=== PATIENT | female | born 1955 | race Caucasian/White ===

== ENCOUNTER 2016-11-10 08:00 | Inpatient (IN) | payer OTHER ==
--- NOTE | 2016-11-09 20:53 | RADRPT ---
Vent Rate: 72 bpm RR Interval: 0 msec MA Interval: 146 msec QRS Duration: 86 msec QT Interval: 372 msec QTC Interval: 407 msec P-R-T [place]: 43 - 69 - 62 degrees Normal sinus rhythm Normal ECG Electronically Signed By: Andriy Sargent [id number]
[2016-11-10] VITALS (15 sets, daily range): BP systolic 105–153; BP diastolic 51–72; PULSE 48–75; RESP 12–23
[~2016-11-10 08:00] MED LIST: ASPI-664 PO; ATOR10TA65 PO; CIPR500T4 PO; GLIP-95 PO; HYD25 PO; LISI30TA47 PO; MTF1000T PO
[2016-11-10] MEDS ORDERED: ROCURONIUM 50 MG INJ ONE ×2 (14:01→18:37)
[2016-11-10] MEDS ORDERED: PROPOFOL 100 ML ONE (14:01)
[2016-11-10] MEDS ORDERED: MIDAZOLAM 1 MG/ML 2 ML INJ ONE (14:02)
[2016-11-10] MEDS ORDERED: SITA1TAB5 PO (14:19)
[2016-11-10] MEDS ORDERED: LANT3I SC (14:20)
--- NOTE | 2016-11-10 14:20 | HP ---
Date/Time of Note Date/Time of Note DATE: 11/10/16 TIME: 14:19 Assessment/Plan VTE Prophylaxis VTE Prophylaxis Intervention: SCD's Lines/Catheters [facility] Saline Lock Assessment/Plan Chief Complaint/Hosp Course Endometrial cancer Problems: Assessment/Plan TLH/BSO/LND HPI/ROS Admit Date/Time Admit Date/Time Nov 10, 2016 at 12:36 Hx of Present Illness Sonido Muniz M.D. [facility] History and Physical Examination Meghan Walsh Date: Nov 09, 2016 :1955 Age: 61 Physicians: It Intern Time Study Engineer Oncologist Referring MD: Andriy Emmanuel History of the Present Illness: A 61 year old female with a Grade 1 endometrial cancer on EMB. Medical history/ROS: Diabetes, Hypertension,Hyperlipidemia. G 3 P 3 Ab 0 Csec x 1, x 2 LMP: Age 49 Surgical history: CSx2. Flu yes, 08/2016, Pneumococcal no, declined Colonoscopy: yes, 10/10/2016 Last Pap Smear: 06/07/2016 Last Mammogram 10/30/2015 Medications: 10/12/16 atorvastatin 40 mg tablet 1 tablet by mouth DAILY 10/11/16 Diabetic Siltussin-DM 10 mg-100 mg/5 mL oral liquid 1 mL by mouth as directed prn q 4 hrs 10/11/16 Fingerstix Lancets 1 item as directed BID 10/11/16 glipizide 10 mg tablet 1 tablet by mouth DAILY 10/11/16 hydrochlorothiazide 50 mg tablet 1 tablet by mouth DAILY 10/11/16 Janumet 50 mg-1,000 mg tablet 1 tablet by mouth BID 10/11/16 Lantus Solostar 100 unit/mL (3 mL) subcutaneous insulin pen 1 unit inject below the skin BID 10/11/16 Lipitor 40 mg tablet 1 tablet by mouth DAILY 10/11/16 lisinopril 20 mg tablet 1 tablet by mouth DAILY 10/11/16 Lotrisone 1 %-0.05 % topical cream 1 application apply on the skin BID 10/11/16 metformin 1,000 mg tablet 1 tablet by mouth BID 10/11/16 Premarin 0.625 mg/gram vaginal cream 1 gm in the vagina as directed Allergies: 10/11/16 No Known Drug Intolerances Family Hx: non-contributary Social HX: non-contributary ROS: as above Physical Examination Vitals (10/12/2016): Weight 153, Height 62, BP 140/80, BMI 28.0. General: Alert. HEENT: Pupils are equal, round, reactive to light and accommodation. Neck: Supple with no masses of lymphadenopathy. Breast: Deferred due to recent examination and responsibility of primary care physician. Chest: Clear to auscultation Heart: Normal rhythm with no murmur. Abdomen: Non tender, no ascites nor organomeglay. Pelvic exam: Uterus enlarged and globular, no masses or cul-de-sac nodularity noted Rectal: confirmatory with pelvic exam. Neurological: Grossly intact Assessment: Endometrial cancer Plan: TLH/BSO/LND possible Ud x2. All risks and benefits of this procedure have been discussed in detail with the patient, as well as alternative treatment strategies and their implications. The patient is aware that there is some possibility of a blood transfusion and its associated risks and benefits. She wishes to proceed and gives her informed consent. Sonido Muniz M.D. PMH/Family/Social Social History Smoking Status: Never smoker Exam/Review of Systems Vital Signs Vitals Vital Signs Date Time Temp Pulse Resp B/P Pulse Ox O2 Delivery O2 Flow Rate FiO2 11/10/16 14:04 97.6 75 18 153/72 98 Room Air SONIDO MUNIZ MD Nov 10, 2016 14:20
--- NOTE | 2016-11-10 14:21 | HPN ---
Date/Time of Note Date/Time of Note DATE: 11/10/16 TIME: 14:20 Interval H&P Admission Note Pt. seen H&P reviewed: No system changes JALEN MUNIZ MD Nov 10, 2016 14:21
[2016-11-10] MEDS ORDERED: VASOPRESSIN 20 UNITS INJ ONE (14:25)
[2016-11-10] MEDS ORDERED: METHYLENE BLUE 10 MG/ML VIAL ONE ×2 (14:26→16:55)
[2016-11-10] MEDS ORDERED: morphine SULFATE/PF (10 MG/10 ML) INJ ONE (14:29)
[2016-11-10] MEDS ORDERED: FENTAnyl 50 MCG/ML VIAL ONE (15:08)
[2016-11-10] MEDS ORDERED: CEFAZOLIN 1 GM INJ ONE ×2 (15:33→18:16)
[2016-11-10] MEDS ORDERED: metroNIDAZOLE 500 MG/NS (PMX) 100 ML IVPB ONE (15:33)
[2016-11-10] MEDS ORDERED: ONDANSETRON 4 MG INJ ONE (15:35)
[2016-11-10] MEDS ORDERED: DEXAMETHASONE 4 MG/ML 1 ML INJ ONE (15:35)
[2016-11-10] MEDS ORDERED: FAMOTIDINE 20 MG INJ ONE (15:35)
[2016-11-10] MEDS ORDERED: METOCLOPRAMIDE 10 MG INJ ONE (15:35)
[2016-11-10] MEDS ORDERED: ROPIVACAINE 0.2% 20 ML VIAL ONE (15:43)
[2016-11-10] MEDS ORDERED: PHENYLephrine (100 MCG/ML) 5ML SYG ONE (15:43)
[2016-11-10] MEDS ORDERED: HEMOSTATIC MATRIX SYG ZFS ONE (17:46)
[2016-11-10] MEDS ORDERED: THROMBIN 5000 UNIT VIAL ONE (17:46)
[2016-11-10] MEDS ORDERED: NEOSTIGMINE 3 MG/3 ML SYRINGE ONE (18:37)
[2016-11-10] MEDS ORDERED: GLYCOPYRROLATE 0.4 MG INJ ONE (18:37)
[2016-11-10] MEDS ORDERED: D5-LR + KCL 20 MEQ 1,000 ML IV SCH (19:30)
[2016-11-10] MEDS ORDERED: ONDANSETRON 4 MG INJ IV PRN (19:30)
[2016-11-10] MEDS ORDERED: HYDROCODONE/APAP (5/325) TAB PO PRN (19:30)
[2016-11-10] MEDS ORDERED: morphine 2 MG INJ IV PRN (19:30)
[2016-11-10] MEDS: KETOROLAC 15 MG INJ IV SCH (22:32)
[2016-11-10] MEDS: CEFAZOLIN 1 GM/50 ML (PMX) 50 ML IVPB SCH (22:33)
[2016-11-10] MEDS ORDERED: GLUCOSE GEL 15 GRAM TUBE BUCCAL PRN (23:30)
[2016-11-10] MEDS ORDERED: GLUCOSE GEL 15 GRAM TUBE PO PRN ×2 (23:30)
[2016-11-10] MEDS ORDERED: DEXTROSE 50% 50 ML SYRINGE IV PRN ×2 (23:30)
[2016-11-10] MEDS ORDERED: GLUCAGON 1 MG INJ IM PRN (23:30)
[2016-11-11] VITALS (7 sets, daily range): BP systolic 90–131; BP diastolic 51–63; PULSE 56–65; RESP 16–20
[2016-11-11] MEDS ORDERED: INSULIN ASPART [NOVOLOG] 3 ML PEN SC ONE
[2016-11-11] MEDS ORDERED: INSULIN ASPART [NOVOLOG] 3 ML PEN SC SCH (01:00)
[2016-11-11] MEDS: KETOROLAC 15 MG INJ IV SCH ×4 (01:30→20:17)
[2016-11-11] MEDS: POTASSIUM CHLORIDE 20 MEQ in LACTATED RINGER'S 1,000 ML IV SCH ×2 (01:40→13:31)
[2016-11-11] MEDS: INSULIN GLARGINE [LANtus] 3 ML PEN SC SCH ×3 (01:44→20:21)
[2016-11-11] MEDS ORDERED: ACCUCHECK XX SCH (02:00)
[2016-11-11] MEDS: CEFAZOLIN 1 GM/50 ML (PMX) 50 ML IVPB SCH ×2 (05:35→13:46)
--- NOTE | 2016-11-11 06:22 | CONS ---
Date/Time of Note Date/Time of Note DATE: 11/11/16 TIME: 06:11 Assessment/Plan Assessment/Plan Additional Assessment/Plan 1. Grade 1 endometrial cancer s/p KULDEEP-BSO and lymph node dissection on 11/10 - cont pain mgmt - monitor for bowel obstruction and urinary retention. cont gonzalez for now - SCDs for DVT ppx 2. HTN: BP within goal - Adjust medsas needed 3. DM - Insulin while in house - will check A1c DVT ppx: SCDs Consultation Date/Type/Reason Admit Date/Time Nov 10, 2016 at 12:36 Reason for Consultation Medical Management Referring Provider: JALEN MUNIZ MD Hx of Present Illness This is a 61 yo female with hx of HTN, DM and A 61 year old female Grade 1 endometrial cancer who underwent KULDEEP-BSO and lymph node dissection on 11/10/16. A consult was placed for medical mgmt. Currently, she is feeling well except blurry vision that started after surgery, which pt and daughter attributed to anesthesia. Pain is well controlled. She denied abd bloating, difficulty passing gas, chest pain, SOB, fever/chills or N/V. , Past Medical History Medical History: diabetes, hypertension Social History Alcohol Use: none Smoking Status: Never smoker Drug Use: none Exam/Review of Systems Vital Signs Vitals Vital Signs Date Time Temp Pulse Resp B/P Pulse Ox O2 Delivery O2 Flow Rate FiO2 11/11/16 04:10 98.3 59 18 95/52 97 Nasal Cannula 11/10/16 21:00 2.0 Intake and Output 11/10/16 11/10/16 11/11/16 15:00 23:00 07:00 Intake Total 3500 ml 400 ml Output Total 400 ml 450 ml Balance 3100 ml -50 ml Exam Constitutional: alert, oriented, well developed Head: atraumatic, normocephalic Eyes: EOMI, PERRL Respiratory: clear to auscultation, normal air movement Cardiovascular: nl pulses, other (slightly emma with regular rhythm) Gastrointestinal: soft, surgical scars, tender Extremities: normal pulses Results Results 24 hrs Laboratory Tests Test 11/10/16 13:46 11/10/16 20:04 11/10/16 23:46 11/11/16 02:21 Bedside Glucose 160 219 303 H 297 H Medications Medications Current Medications Cefazolin Sodium (Ancef 1 Gm/50 ml (Pmx)) 50 ml @ 100 mls/hr Q8 IVPB Last administered on 11/11/16 05:35; Admin Dose 100 MLS/HR; Start 11/10/16 at 22:00 ; Stop 11/11/16 at 14:29 Ketorolac Tromethamine (Toradol) 15 mg Q6H IV Last administered on 11/10/16 22 :32; Admin Dose 15 MG; Start 11/10/16 at 19:30; Stop 11/12/16 at 13:31 Acetaminophen/ Hydrocodone Bitart ([place] (5/325)) 1 tab Q6H PRN PO PAIN; Start 11/10/16 at 19:30 Morphine Sulfate (morphine) 2 mg Q4H PRN IV PAIN LEVEL 7-10; Start 11/10/16 at 19:30 Ondansetron HCl (Zofran Inj) 4 mg Q6H PRN IV NAUSEA AND/OR VOMITING; Start at 19:30 Miscellaneous Information 1 ea NOTE XX ; Start 11/10/16 at 23:30 Glucose (Glutose) 15 gm Q15M PRN PO DECREASED GLUCOSE; Start 11/10/16 at 23:30 Glucose (Glutose) 22.5 gm Q15M PRN PO DECREASED GLUCOSE; Start 11/10/16 at 23: 30 Dextrose (D50w Syringe) 25 ml Q15M PRN IV DECREASED GLUCOSE; Start 11/10/16 at 23:30 Dextrose (D50w Syringe) 50 ml Q15M PRN IV DECREASED GLUCOSE; Start 11/10/16 at 23:30 Glucagon (Glucagen) 1 mg Q15M PRN IM DECREASED GLUCOSE; Start 11/10/16 at 23:30 Glucose (Glutose) 15 gm Q15M PRN BUCCAL DECREASED GLUCOSE; Start 11/10/16 at 23 :30 Diagnostic Test (Pha) (Accucheck) 1 ea 02 XX Last administered on 11/11/16 02: 00; Admin Dose 1 EA; Start 11/11/16 at 02:00 Insulin Glargine (Lantus) 15 unit QHS SC Last administered on 11/11/16 01:44; Admin Dose 15 UNIT; Start 11/11/16 at 00:00 Insulin Glargine 10 unit 10 unit AM SC ; Start 11/11/16 at 09:00 Potassium Chloride/Lactated Ringer's (KCl/Lr) 1,010 ml @ 75 mls/hr [id number] IV Last administered on 11/11/16t 01:40; Admin Dose 75 MLS/HR; Start 11/11/16 at 00 :00 TULIO FRANCIS MD Nov 11, 2016 06:21
[2016-11-11 06:58] LABS: BASOPHIL # 0.1 10^3/ul (0.0-0.1); BASOPHILS % 0.7 % (0.0-2.0); HEMATOCRIT 33.1 % (37.0-47.0); HEMOGLOBIN 11.2 g/dl (12.0-16.0); LYMPHOCYTES # 1.2 10^3/ul (0.8-2.9); LYMPHOCYTES % 10.4 % (15.0-51.0); MEAN CORPUSCULAR HGB CONC 33.8 g/dl (32.0-37.0); MEAN CORPUSCULAR VOLUME 85.9 fl (82.0-101.0); MEAN PLATELET VOLUME 9.8 fl (7.4-10.4); MONOCYTES % 8.8 % (0.0-11.0); NEUTROPHIL # 9.1 10^3/ul (1.6-7.5); NEUTROPHILS % 80.1 % (39.0-77.0); PLATELET COUNT 273 10^3/UL (140-440); RED BLOOD COUNT 3.85 10^6/ul (4.20-5.40); UNCORRECTED WBC 11.3 10^3/ul (4.8-10.8); WHITE BLOOD COUNT 11.3 10^3/ul (4.8-10.8)
[2016-11-11 07:00] LABS: CONDITION 1
[2016-11-11 07:24] LABS: POTASSIUM 5.1 mmol/L (3.5-5.1)
[2016-11-11 07:26] LABS: CREATININE 1.18 mg/dl (0.44-1.00)
[2016-11-11 07:27] LABS: CALCIUM 8.2 mg/dl (8.4-10.2); PHOSPHORUS 5.4 mg/dl (2.5-4.9)
[2016-11-11 07:28] LABS: MAGNESIUM 1.5 mg/dl (1.7-2.5)
[2016-11-11] MEDS: INSULIN ASPART [NOVOLOG] 3 ML PEN SC SCH ×5 (07:52→20:21)
--- NOTE | 2016-11-11 13:50 | PN ---
Date/Time of Note Date/Time of Note DATE: 11/11/16 TIME: 13:45 Assessment/Plan VTE Prophylaxis VTE Prophylaxis Intervention: LMWH Lines/Catheters IV Catheter Type (from Nrs): Peripheral IV Urinary Cath still in place: Yes Reason Cath still needed: urinary retention Assessment/Plan Chief Complaint/Hosp Course S; 11/11- mild pain; no flatus? +bleching. no dyspnea. dry eyes? Had blurry vision earlier. O: vss PE no pallor. eomi s1s2 reg; no m/r/g ctab bs+; mild tender, nd; overweight. no r/r/g; drain c/d/i no edema A/P 1. POD 1 KULDEEP-BSO; Gr 1 Endometrial Ca; & LND. stable; Rx pain/gonzalez/drain care. diet, lovenox, & activity as appropriate. 2. HTN 3. DM/ metabolic syndrome 4. Endometrial Ca; onc f/u as needed 5. Blurry vision; incomplete taping/closure? no evidence of tia. Problems: Exam/Review of Systems Vital Signs Vitals Vital Signs Date Time Temp Pulse Resp B/P Pulse Ox O2 Delivery O2 Flow Rate FiO2 11/11/16 11:37 98.3 63 20 98/53 95 11/11/16 08:00 Nasal Cannula 2.0 Intake and Output 11/10/16 11/10/16 11/11/16 15:00 23:00 07:00 Intake Total 3500 ml 400 ml Output Total 400 ml 450 ml Balance 3100 ml -50 ml Results Result Diagram: 11/11/16 0642 11/11/16 0642 Results 24 hrs Laboratory Tests Test 11/10/16 13:46 11/10/16 20:04 11/10/16 23:46 11/11/16 02:21 Bedside Glucose 160 219 303 H 297 H Test 11/11/16 06:42 11/11/16 07:41 11/11/16 11:24 Anion Gap 16 Basophils # 0.1 Basophils % 0.7 Blood Urea Nitrogen 21 H Calcium Level 8.2 L Carbon Dioxide Level 23 Chloride Level 104 Creatinine 1.18 H Eosinophils # 0.0 Eosinophils % 0.0 Glucose Level 267 H Hematocrit 33.1 L Hemoglobin 11.2 L Lymphocytes # 1.2 Lymphocytes % 10.4 L Magnesium Level 1.5 L Mean Corpuscular Hemoglobin 29.0 Mean Corpuscular Hemoglobin Concent 33.8 Mean Corpuscular Volume 85.9 Mean Platelet Volume 9.8 Monocytes # 1.0 H Monocytes % 8.8 Neutrophils # 9.1 H Neutrophils % 80.1 H Nucleated Red Blood Cells # 0.0 Nucleated Red Blood Cells % 0.0 Phosphorus Level 5.4 H Platelet Count 273 Potassium Level 5.1 Red Blood Count 3.85 L Red Cell Distribution Width 14.0 Sodium Level 138 White Blood Count 11.3 #H Bedside Glucose 272 H 395 H Medications Medications Current Medications Cefazolin Sodium (Ancef 1 Gm/50 ml (Pmx)) 50 ml @ 100 mls/hr Q8 IVPB Last administered on 11/11/16 05:35; Admin Dose 100 MLS/HR; Start 11/10/16 at 22:00 ; Stop 11/11/16 at 14:29 Ketorolac Tromethamine (Toradol) 15 mg Q6H IV Last administered on 11/11/16 13 :32; Admin Dose 15 MG; Start 11/10/16 at 19:30; Stop 11/12/16 at 13:31 Acetaminophen/ Hydrocodone Bitart ([place] (5/325)) 1 tab Q6H PRN PO PAIN; Start 11/10/16 at 19:30 Morphine Sulfate (morphine) 2 mg Q4H PRN IV PAIN LEVEL 7-10; Start 11/10/16 at 19:30 Ondansetron HCl (Zofran Inj) 4 mg Q6H PRN IV NAUSEA AND/OR VOMITING; Start at 19:30 Miscellaneous Information 1 ea NOTE XX ; Start 11/10/16 at 23:30 Glucose (Glutose) 15 gm Q15M PRN PO DECREASED GLUCOSE; Start 11/10/16 at 23:30 Glucose (Glutose) 22.5 gm Q15M PRN PO DECREASED GLUCOSE; Start 11/10/16 at 23: 30 Dextrose (D50w Syringe) 25 ml Q15M PRN IV DECREASED GLUCOSE; Start 11/10/16 at 23:30 Dextrose (D50w Syringe) 50 ml Q15M PRN IV DECREASED GLUCOSE; Start 11/10/16 at 23:30 Glucagon (Glucagen) 1 mg Q15M PRN IM DECREASED GLUCOSE; Start 11/10/16 at 23:30 Glucose (Glutose) 15 gm Q15M PRN BUCCAL DECREASED GLUCOSE; Start 11/10/16 at 23 :30 Diagnostic Test (Pha) (Accucheck) 1 ea 02 XX Last administered on 11/11/16 02: 00; Admin Dose 1 EA; Start 11/11/16 at 02:00 Insulin Glargine (Lantus) 15 unit QHS SC Last administered on 11/11/16 01:44; Admin Dose 15 UNIT; Start 11/11/16 at 00:00 Insulin Glargine 10 unit 10 unit AM SC Last administered on 11/11/16 09:24; Admin Dose 10 UNIT; Start 11/11/16 at 09:00 Potassium Chloride/Lactated Ringer's (KCl/Lr) 1,010 ml @ 75 mls/hr [id number] IV Last administered on 11/11/16 13:31; Admin Dose 75 MLS/HR; Start 11/11/16 at 00 :00 RICHMOND CABRAL MD Nov 11, 2016 13:50
[2016-11-11] MEDS ORDERED: ALBUTEROL 0.083% (NEB) 2.5 MG/3 ML AMP HHN PRN (14:00)
[2016-11-11] MEDS ORDERED: INSULIN GLARGINE [LANtus] 3 ML PEN SC ONE (14:00)
[2016-11-11] MEDS: FAMOTIDINE 20 MG INJ IV SCH (14:23)
[2016-11-11] MEDS ORDERED: MAGNESIUM SULFATE 3 GM in SOD CHLORIDE 0.9% 100 ML IVPB ONE (16:00)
--- NOTE | 2016-11-11 19:53 | PN ---
Date/Time of Note Date/Time of Note DATE: 11/11/16 TIME: 19:48 Assessment/Plan VTE Prophylaxis VTE Prophylaxis Intervention: SCD's Lines/Catheters [facility] Saline Lock Urinary Cath still in place: Yes Assessment/Plan Chief Complaint/Hosp Course Endometrial cancer Problems: Assessment/Plan A- doing well P- adv diet and mobilize Subjective 24 Hr Interval Summary Free Text/Dictation S- Comfortable, tolerates diet and + flatus. minimally OOB O- Resp- clear CVS-NSR Abd- soft NT Ext- NT no edema A- doing well P- adv diet and mobilize. Exam/Review of Systems Vital Signs Vitals Vital Signs Date Time Temp Pulse Resp B/P Pulse Ox O2 Delivery O2 Flow Rate FiO2 11/11/16 13:45 Nasal Cannula 2.0 11/11/16 13:45 98.0 65 16 113/57 98 Intake and Output 11/10/16 11/10/16 11/11/16 15:00 23:00 07:00 Intake Total 3500 ml 400 ml Output Total 400 ml 450 ml Balance 3100 ml -50 ml Results Result Diagram: 11/11/16 0642 11/11/16 0642 Results 24 hrs Laboratory Tests Test 11/10/16 20:04 11/10/16 23:46 11/11/16 02:21 11/11/16 06:42 Bedside Glucose 219 303 H 297 H Anion Gap 16 Basophils # 0.1 Basophils % 0.7 Blood Urea Nitrogen 21 H Calcium Level 8.2 L Carbon Dioxide Level 23 Chloride Level 104 Creatinine 1.18 H Eosinophils # 0.0 Eosinophils % 0.0 Glucose Level 267 H Hematocrit 33.1 L Hemoglobin 11.2 L Lymphocytes # 1.2 Lymphocytes % 10.4 L Magnesium Level 1.5 L Mean Corpuscular Hemoglobin 29.0 Mean Corpuscular Hemoglobin Concent 33.8 Mean Corpuscular Volume 85.9 Mean Platelet Volume 9.8 Monocytes # 1.0 H Monocytes % 8.8 Neutrophils # 9.1 H Neutrophils % 80.1 H Nucleated Red Blood Cells # 0.0 Nucleated Red Blood Cells % 0.0 Phosphorus Level 5.4 H Platelet Count 273 Potassium Level 5.1 Red Blood Count 3.85 L Red Cell Distribution Width 14.0 Sodium Level 138 White Blood Count 11.3 #H Test 11/11/16 07:41 11/11/16 11:24 11/11/16 14:22 11/11/16 17:25 Bedside Glucose 272 H 395 H 305 H 350 H Medications Medications Current Medications Ketorolac Tromethamine (Toradol) 15 mg Q6H IV Last administered on 11/11/16 13 :32; Admin Dose 15 MG; Start 11/10/16 at 19:30; Stop 11/12/16 at 13:31 Acetaminophen/ Hydrocodone Bitart ([place] (5/325)) 1 tab Q6H PRN PO PAIN; Start 11/10/16 at 19:30 Morphine Sulfate (morphine) 2 mg Q4H PRN IV PAIN LEVEL 7-10; Start 11/10/16 at 19:30 Ondansetron HCl (Zofran Inj) 4 mg Q6H PRN IV NAUSEA AND/OR VOMITING; Start at 19:30 Miscellaneous Information 1 ea NOTE XX ; Start 11/10/16 at 23:30 Glucose (Glutose) 15 gm Q15M PRN PO DECREASED GLUCOSE; Start 11/10/16 at 23:30 Glucose (Glutose) 22.5 gm Q15M PRN PO DECREASED GLUCOSE; Start 11/10/16 at 23: 30 Dextrose (D50w Syringe) 25 ml Q15M PRN IV DECREASED GLUCOSE; Start 11/10/16 at 23:30 Dextrose (D50w Syringe) 50 ml Q15M PRN IV DECREASED GLUCOSE; Start 11/10/16 at 23:30 Glucagon (Glucagen) 1 mg Q15M PRN IM DECREASED GLUCOSE; Start 11/10/16 at 23:30 Glucose (Glutose) 15 gm Q15M PRN BUCCAL DECREASED GLUCOSE; Start 11/10/16 at 23 :30 Insulin Glargine (Lantus) 15 unit QHS SC Last administered on 11/11/16 01:44; Admin Dose 15 UNIT; Start 11/11/16 at 00:00 Insulin Glargine 10 unit 10 unit AM SC Last administered on 11/11/16 09:24; Admin Dose 10 UNIT; Start 11/11/16 at 09:00 Potassium Chloride/Lactated Ringer's (KCl/Lr) 1,010 ml @ 75 mls/hr [id number] IV Last administered on 11/11/16 13:31; Admin Dose 75 MLS/HR; Start 11/11/16 at 00 :00 Diagnostic Test (Pha) (Accucheck) 1 ea 02 XX ; Start 11/12/16 at 02:00 Famotidine (Pepcid Iv) 20 mg DAILY IV Last administered on 11/11/16t 14:23; Admin Dose 20 MG; Start 11/11/16 at 14:00 Enoxaparin Sodium (Lovenox) 40 mg DAILY SC ; Start 11/12/16 at 09:00; Status UNV JALEN MUNIZ MD Nov 11, 2016 19:53
[2016-11-11] MEDS: LACTATED RINGER'S 1,000 ML IV SCH (20:18)
[2016-11-12] MEDS ORDERED: ACCUCHECK XX SCH (02:00)
[2016-11-12] MEDS: KETOROLAC 15 MG INJ IV SCH ×3 (02:01→14:49)
[2016-11-12 05:59] LABS: ALBUMIN 2.6 g/dl (3.3-4.9)
[2016-11-12 06:00] LABS: POTASSIUM 4.5 mmol/L (3.5-5.1)
[2016-11-12 06:02] LABS: CREATININE 0.99 mg/dl (0.44-1.00)
[2016-11-12 06:03] LABS: ALBUMIN/GLOBULIN RATIO 1.08; CALCIUM 8.3 mg/dl (8.4-10.2); MAGNESIUM 2.3 mg/dl (1.7-2.5)
[2016-11-12 06:12] LABS: INR 1.05; PROTIME 13.7 Sec (12.2-14.2); PT RATIO 1.1
[2016-11-12 06:33] LABS: THYROID STIMULATING HORMONE 0.46 MIU/L (0.465-4.680)
[2016-11-12 06:51] LABS: BASOPHILS % 0.5 % (0.0-2.0); EOSINOPHILS # 0.1 10^3/ul (0.0-0.5); EOSINOPHILS % 1.2 % (0.0-7.0); HEMATOCRIT 27.9 % (37.0-47.0); HEMOGLOBIN 9.5 g/dl (12.0-16.0); LYMPHOCYTES # 2.6 10^3/ul (0.8-2.9); LYMPHOCYTES % 28.1 % (15.0-51.0); MEAN CORPUSCULAR HEMOGLOBIN 29.1 pg (29.0-33.0); MEAN CORPUSCULAR HGB CONC 34.1 g/dl (32.0-37.0); MEAN CORPUSCULAR VOLUME 85.3 fl (82.0-101.0); MEAN PLATELET VOLUME 10.1 fl (7.4-10.4); MONOCYTE # 0.8 10^3/ul (0.3-0.9); MONOCYTES % 8.4 % (0.0-11.0); NEUTROPHIL # 5.8 10^3/ul (1.6-7.5); NEUTROPHILS % 61.8 % (39.0-77.0); PLATELET COUNT 198 10^3/UL (140-440); RED BLOOD COUNT 3.26 10^6/ul (4.20-5.40); RED CELL DISTRIBUTION WIDTH 13.3 % (11.5-14.5); UNCORRECTED WBC 9.3 10^3/ul (4.8-10.8); WHITE BLOOD COUNT 9.3 10^3/ul (4.8-10.8)
[2016-11-12 07:15] LABS: CONDITION 1
[2016-11-12 07:35] VITALS: BP 108/71; RESP 16
[2016-11-12] MEDS: FAMOTIDINE 20 MG INJ IV SCH (08:33)
[2016-11-12] MEDS: INSULIN GLARGINE [LANtus] 3 ML PEN SC SCH (08:35)
[2016-11-12] MEDS: INSULIN ASPART [NOVOLOG] 3 ML PEN SC SCH ×5 (08:36→17:52)
[2016-11-12] MEDS: LACTATED RINGER'S 1,000 ML IV SCH (08:41)
[2016-11-12] MEDS ORDERED: ENOXAPARIN 40 MG/0.4 ML SYG SC SCH (09:00)
--- NOTE | 2016-11-12 10:33 | CONS ---
Date/Time of Note Date/Time of Note DATE: 11/12/16 TIME: 09:32 Consultation Date/Type/Reason Admit Date/Time Nov 10, 2016 at 12:36 Initial Consult Date 11/10/16 Type of Consultation: Anesthesia Referring Provider: JALEN MUNIZ MD 24 HR Interval Summary Free Text/Dictation This is a 61 yo female with hx of HTN, DM and A 61 year old female Grade 1 endometrial cancer who underwent KULDEEP-BSO and lymph node dissection on 11/10/16. Epidural anesthesia and General anesthesia was used for the surgery. Epidural Duramorph was used to manage her pain post-operatively. Pain is well controlled. No apnea or itching reported. No motor and sensory deficit reported. No nausea or vomiting. Primary team will be following her up. Exam/Review of Systems Vital Signs Vitals Vital Signs Date Time Temp Pulse Resp B/P Pulse Ox O2 Delivery O2 Flow Rate FiO2 11/12/16 07:35 98.7 79 16 108/71 96 11/11/16 21:10 Nasal Cannula 2.0 Intake and Output 11/11/16 11/11/16 11/12/16 14:59 22:59 06:59 Intake Total 980 ml 729 ml 1300 ml Output Total 300 ml 50 ml 950 ml Balance 680 ml 679 ml 350 ml Results Result Diagram: 11/12/16 0436 11/12/16 0436 Results 24 hrs Laboratory Tests Test 11/11/16 11:24 11/11/16 14:22 11/11/16 17:25 11/11/16 20:12 Bedside Glucose 395 H 305 H 350 H 255 H Test 11/12/16 02:00 11/12/16 04:36 11/12/16 08:02 Bedside Glucose 209 170 Alanine Aminotransferase (ALT/SGPT) 126 H Albumin 2.6 L Albumin/Globulin Ratio 1.08 Alkaline Phosphatase 68 Anion Gap 13 Aspartate Amino Transf (AST/SGOT) 126 H Basophils # 0.0 Basophils % 0.5 Blood Urea Nitrogen 25 H Calcium Level 8.3 L Carbon Dioxide Level 26 Chloride Level 95 L Creatinine 0.99 Direct Bilirubin 0.00 Eosinophils # 0.1 Eosinophils % 1.2 Globulin 2.40 Glucose Level 190 Hematocrit 27.9 L Hemoglobin 9.5 L Hemoglobin A1c 10.7 H INR International Normalized Ratio 1.05 Indirect Bilirubin 0.0 Lymphocytes # 2.6 Lymphocytes % 28.1 Magnesium Level 2.3 Mean Corpuscular Hemoglobin 29.1 Mean Corpuscular Hemoglobin Concent 34.1 Mean Corpuscular Volume 85.3 Mean Platelet Volume 10.1 Monocytes # 0.8 Monocytes % 8.4 Neutrophils # 5.8 Neutrophils % 61.8 Nucleated Red Blood Cells # 0.0 Nucleated Red Blood Cells % 0.0 Phosphorus Level 3.0 # Platelet Count 198 # Potassium Level 4.5 Prothrombin Time 13.7 Prothrombin Time Ratio 1.1 Red Blood Count 3.26 L Red Cell Distribution Width 13.3 Sodium Level 129 L Thyroid Stimulating Hormone (TSH) 0.460 L Total Bilirubin 0.0 L Total Protein 5.0 L White Blood Count 9.3 Medications Medications Current Medications Ketorolac Tromethamine (Toradol) 15 mg Q6H IV Last administered on 11/12/16t 08 :33; Admin Dose 15 MG; Start 11/10/16 at 19:30; Stop 11/12/16 at 13:31 Acetaminophen/ Hydrocodone Bitart ([place] (5/325)) 1 tab Q6H PRN PO PAIN; Start 11/10/16 at 19:30 Morphine Sulfate (morphine) 2 mg Q4H PRN IV PAIN LEVEL 7-10; Start 11/10/16 at 19:30 Ondansetron HCl (Zofran Inj) 4 mg Q6H PRN IV NAUSEA AND/OR VOMITING; Start at 19:30 Miscellaneous Information 1 ea NOTE XX ; Start 11/10/16 at 23:30 Glucose (Glutose) 15 gm Q15M PRN PO DECREASED GLUCOSE; Start 11/10/16 at 23:30 Glucose (Glutose) 22.5 gm Q15M PRN PO DECREASED GLUCOSE; Start 11/10/16 at 23: 30 Dextrose (D50w Syringe) 25 ml Q15M PRN IV DECREASED GLUCOSE; Start 11/10/16 at 23:30 Dextrose (D50w Syringe) 50 ml Q15M PRN IV DECREASED GLUCOSE; Start 11/10/16 at 23:30 Glucagon (Glucagen) 1 mg Q15M PRN IM DECREASED GLUCOSE; Start 11/10/16 at 23:30 Glucose (Glutose) 15 gm Q15M PRN BUCCAL DECREASED GLUCOSE; Start 11/10/16 at 23 :30 Insulin Glargine (Lantus) 15 unit QHS SC Last administered on 11/11/16 20:21; Admin Dose 15 UNIT; Start 11/11/16 at 00:00 Insulin Glargine (Lantus) 10 unit AM SC Last administered on 11/12/16 08:35; Admin Dose 10 UNIT; Start 11/11/16 at 09:00 Diagnostic Test (Pha) (Accucheck) 1 ea 02 XX ; Start 11/12/16 at 02:00 Famotidine (Pepcid Iv) 20 mg DAILY IV Last administered on 11/12/16 08:33; Admin Dose 20 MG; Start 11/11/16 at 14:00 Enoxaparin Sodium 40 mg 40 mg DAILY SC ; Start 11/12/16 at 09:00; Status UNV Lactated Ringer's (Lr) 1,000 ml @ 75 mls/hr [id number] IV Last administered on 08:41; Admin Dose 75 MLS/HR; Start 11/11/16 at 20:00 KASEY THRASHER MD Nov 12, 2016 10:33
--- NOTE | 2016-11-12 12:57 | PN ---
Date/Time of Note Date/Time of Note DATE: 11/12/16 TIME: 12:56 Assessment/Plan VTE Prophylaxis VTE Prophylaxis Intervention: contraindicated (Recent epidural), LMWH Lines/Catheters IV Catheter Type (from Nrsg): Saline Lock Urinary Cath still in place: Yes Reason Cath still needed: urinary retention Assessment/Plan Chief Complaint/Hosp Course S; 11/11- mild pain; no flatus? +bleching. no dyspnea. dry eyes? Had blurry vision earlier. 11/12: Doing well. Pain controlled. Minimal cough better with ambulation. No fever. O: vss PE no pallor. eomi s1s2 reg; no m/r/g ctab bs+; min tender, nd; overweight. no r/r/g; drain c/d/i no edema A/P 1. POD 2 KULDEEP-BSO; Gr 1 Endometrial Ca; & LND. stable; stable, Rx pain/gonzalez/ drain care. diet, lovenox (if no epidural), & activity as appropriate. 2. HTN 3. DM/ metabolic syndrome 4. Endometrial Ca; onc f/u as needed 5. Blurry vision; incomplete taping/closure? no evidence of tia. 6. Subclinical hyperthyroidism 9. Anemia stable follow Problems: Exam/Review of Systems Vital Signs Vitals Vital Signs Date Time Temp Pulse Resp B/P Pulse Ox O2 Delivery O2 Flow Rate FiO2 11/12/16 07:35 98.7 79 16 108/71 96 11/11/16 21:10 Nasal Cannula 2.0 Intake and Output 11/11/16 11/11/16 11/12/16 14:59 22:59 06:59 Intake Total 980 ml 729 ml 1300 ml Output Total 300 ml 50 ml 950 ml Balance 680 ml 679 ml 350 ml Results Result Diagram: 11/12/16 0436 11/12/16 0436 Results 24 hrs Laboratory Tests Test 11/11/16 14:22 11/11/16 17:25 11/11/16 20:12 11/12/16 02:00 Bedside Glucose 305 H 350 H 255 H 209 Test 11/12/16 04:36 11/12/16 08:02 11/12/16 12:19 Alanine Aminotransferase (ALT/SGPT) 126 H Albumin 2.6 L Albumin/Globulin Ratio 1.08 Alkaline Phosphatase 68 Anion Gap 13 Aspartate Amino Transf (AST/SGOT) 126 H Basophils # 0.0 Basophils % 0.5 Blood Urea Nitrogen 25 H Calcium Level 8.3 L Carbon Dioxide Level 26 Chloride Level 95 L Creatinine 0.99 Direct Bilirubin 0.00 Eosinophils # 0.1 Eosinophils % 1.2 Globulin 2.40 Glucose Level 190 Hematocrit 27.9 L Hemoglobin 9.5 L Hemoglobin A1c 10.7 H INR International Normalized Ratio 1.05 Indirect Bilirubin 0.0 Lymphocytes # 2.6 Lymphocytes % 28.1 Magnesium Level 2.3 Mean Corpuscular Hemoglobin 29.1 Mean Corpuscular Hemoglobin Concent 34.1 Mean Corpuscular Volume 85.3 Mean Platelet Volume 10.1 Monocytes # 0.8 Monocytes % 8.4 Neutrophils # 5.8 Neutrophils % 61.8 Nucleated Red Blood Cells # 0.0 Nucleated Red Blood Cells % 0.0 Phosphorus Level 3.0 # Platelet Count 198 # Potassium Level 4.5 Prothrombin Time 13.7 Prothrombin Time Ratio 1.1 Red Blood Count 3.26 L Red Cell Distribution Width 13.3 Sodium Level 129 L Thyroid Stimulating Hormone (TSH) 0.460 L Total Bilirubin 0.0 L Total Protein 5.0 L White Blood Count 9.3 Bedside Glucose 170 233 H Medications Medications Current Medications Ketorolac Tromethamine (Toradol) 15 mg Q6H IV Last administered on 11/12/16t 08 :33; Admin Dose 15 MG; Start 11/10/16 at 19:30; Stop 11/12/16 at 13:31 Acetaminophen/ Hydrocodone Bitart ([place] (5/325)) 1 tab Q6H PRN PO PAIN; Start 11/10/16 at 19:30 Morphine Sulfate (morphine) 2 mg Q4H PRN IV PAIN LEVEL 7-10; Start 11/10/16 at 19:30 Ondansetron HCl (Zofran Inj) 4 mg Q6H PRN IV NAUSEA AND/OR VOMITING; Start at 19:30 Miscellaneous Information 1 ea NOTE XX ; Start 11/10/16 at 23:30 Glucose (Glutose) 15 gm Q15M PRN PO DECREASED GLUCOSE; Start 11/10/16 at 23:30 Glucose (Glutose) 22.5 gm Q15M PRN PO DECREASED GLUCOSE; Start 11/10/16 at 23: 30 Dextrose (D50w Syringe) 25 ml Q15M PRN IV DECREASED GLUCOSE; Start 11/10/16 at 23:30 Dextrose (D50w Syringe) 50 ml Q15M PRN IV DECREASED GLUCOSE; Start 11/10/16 at 23:30 Glucagon (Glucagen) 1 mg Q15M PRN IM DECREASED GLUCOSE; Start 11/10/16 at 23:30 Glucose (Glutose) 15 gm Q15M PRN BUCCAL DECREASED GLUCOSE; Start 11/10/16 at 23 :30 Insulin Glargine (Lantus) 15 unit QHS SC Last administered on 11/11/16 20:21; Admin Dose 15 UNIT; Start 11/11/16 at 00:00 Insulin Glargine (Lantus) 10 unit AM SC Last administered on 11/12/16 08:35; Admin Dose 10 UNIT; Start 11/11/16 at 09:00 Diagnostic Test (Pha) (Accucheck) 1 ea 02 XX ; Start 11/12/16 at 02:00 Famotidine (Pepcid Iv) 20 mg DAILY IV Last administered on 11/12/16 08:33; Admin Dose 20 MG; Start 11/11/16 at 14:00 Enoxaparin Sodium 40 mg 40 mg DAILY SC ; Start 11/12/16 at 09:00; Status UNV Lactated Ringer's (Lr) 1,000 ml @ 75 mls/hr [id number] IV Last administered on 08:41; Admin Dose 75 MLS/HR; Start 11/11/16 at 20:00 RICHMOND CABRAL MD Nov 12, 2016 12:57
[2016-11-12] MEDS ORDERED: DOCU-216 PO (15:17)
[2016-11-12] MEDS ORDERED: FAMO20TA18 PO (15:17)
[2016-11-12] MEDS ORDERED: IBUP-1542 PO (15:17)
--- NOTE | 2016-11-12 15:18 | PDOCDIS ---
Discharge Instructions DIAGNOSIS Discharge Diagnosis: endometrial surgery CONDITION Patient Condition: Good HOME CARE INSTRUCTIONS: Special Diet: FULL LIQUID ACTIVITY: Activity Restrictions: Slowly Increase Activity Do not Drive FOLLOW UP/APPOINTMENTS Appointments Appt pcp 1wk Dr Lemus this week. OTHER ORDERS: Other Orders: may take OTC tylenol or motrin (up to 600mg every 6hrs) as needed for pain or fever. SCHOOL/WORK RELEASE May return to School/Work on: Nov 12, 2016 RICHMOND CABRAL MD Nov 12, 2016 15:18
--- NOTE | 2016-11-12 15:22 | OPR ---
Date/Time of Note Date/Time of Note DATE: 11/12/16 TIME: 15:21 Operative Report Free Text/Dictation 1 OPERATIVE REPORT [facility] Name: Meghan Walsh Medical Date: 11/10/16 Preoperative Diagnosis: 1-Endometrial cancer grade 1 Postoperative Diagnosis: 1-Endometrial cancer with final pathology pending 2- Extensive pelvic adhesions 3- Ureteral distortion Procedures: 1- Total laparoscopic hysterectomy with bilateral salpingoophorectomy 2- Bilateral ureteral dissection with repositioning 3- Laparoscopic pelvic and aortic lymph node dissection 4- Retroperitoneal uterine artery ligation adjacent to hypogastric artery Surgeon: Dr. Muniz Jai Alai Player: Dr. Jae Prater Anaesthesia: General with regional Indications for Procedure: This 61- year old patient had a grade 1 endometrial cancer without evidence of metastatic disease preoperatively and after discussions of options with risks and benefits it was determined that a laparoscopic hysterectomy with bilateral salpingoophorectomy and pelvic/aortic lymph node dissection would be completed for the purposes of treatment and possibly planning additional adjuvant therapy. The pelvic and LND was performed in lieu of final grading not being equivalent to preoperative D&C grade 18-25% of the time and frozen section not being more that 80% reliable in determining grade and depth of invasion; therefore complete staging is performed to Name: Meghan Walsh Medical determine postoperative management unless there is a significant contraindication. Intraoperative Findings and Summary of Procedure: After placing the Trocars and exploration we noted uterine enlargement with a probable anterior fibroid with significant adhesions of the adnexia to the sidewalls. The TLH/BSO was then performed without incident but required a ureteral dissection due to anatomic issues of the adnexia adherent to the sidewalls and uterine enlargement due to fibroids and scar tissue with retroperitoneal uterine artery ligation adjacent to hypogastric artery for required hemostasis due to vascular distortion, with the laparoscopic LND being subsequently performed with a finding of grossly negative nodes pathology pending. The patient will stay a minimum of one night to observe for recovery of from anesthesia and confirm stable hemoglobin and hematocrit with the necessity of confirmation of some GI recovery and probably need an addition night as well. Findings and Procedure: After being prepped and draped in the usual manner an EEA sizer and pneumo- occluder was inserted vaginally. A 5-millimeter trocar was then placed periumbilically without incident. Subsequently, we insufflated and placed two 12- millimeter trocars laterally and a 12-millimeter trocar suprapubically, as well as an additional 5-mm trocar cephlad to the umbilicus. At this time multiple pelvic adhesions were lysed with sharp dissection and the Omni if not adjacent to serosa. Subsequently we explored and noted a an enlarged globular uterus with probable anterior fibroid with adnexia adherent to the sidewalls due to apparent inflammation and old scar tissue. Initially the right round ligament was cauterized and transected with the Thunderbeat and the retroperitoneal space further opened parallel to the IP ligament an laterally with the same devise. The right ureter was identified and due to the aforementioned distortion from adherent adnexia was dissected laterally with the Omni and the endo-dissector. After lateralizing Name: Meghan Walsh [facility] the ureter the uterine artery was identified and clipped adjacent to the hypogastric artery lateral to the ureter due to the uterine enlargement and hypervascularity and notable distortion of the vasculature adjacent to the lower uterine segment. Hence, a space was developed the broad ligament and the right IP ligament was cauterized and transected with a Thunderbeat after which the uterus was retracted medially and the bladder flap was partly developed with the Gyrus bipolar cutting forceps and the Omni. We then used a 10-mm ratcheted endo-grasper placed through the 12-mm suprapubic trocar to manipulate the uterus and with the EEA sizer uterus was retracted and left round ligament was cauterized and transected with the Thunderbeat and the retroperitoneal space further opened parallel to the IP ligament an laterally with the same devise. The left ureter was identified and due to the aforementioned distortion was dissected laterally with the Omni and the endo- dissector as done contralaterally. After lateralizing the ureter the uterine artery was identified and clipped adjacent to the hypogastric artery lateral to the ureter, due to the uterine enlargement and hypervascularity with vasculature distortion as noted contralaterally. Hence, a space was developed in the broad ligament and the left IP ligament was cauterized and transected with a Thunderbeat after which the uterus was retracted medially, allowing development or the bladder flap uneventfully with a Thunderbeat and blunt dissection. Subsequently, the right uterine artery was transected with a Thunderbeat perpendicular to the distal lower uterine segment and the Cardinal ligament and utero-sacral ligament were both transected with an Omni and Thunderbeat parallel to the lower uterine segment and cervix. An identical series of steps were taken on the left side. The anterior and posterior colpotomies were accomplished with a Thunderbeat anteriorly and posteriorly, and continued around the sides as the specimen was removed through the vagina uneventfully. The vagina was closed with interrupted 0 Vicryl suture and continuous 2-0 v-lock suture. At this time the pelvic and aortic LND were completed after confirming hemostasis. Initially a fan retractor was used for exposure and secured to the Keven arm and all lymph node tissue adjacent to the right external iliac artery and vein, hypogastric artery and vein, as well as obturator fossa were removed with sharp Name: Meghan Walsh Medical and blunt dissection, using the Thunderbeat or Gyrus bipolar Omni for hemostasis and lymphostasis. The jay tissue was grasped and subsequently placed under tractions with the Omni and the Thunderbeat then being used for the hemostasis and lymphostasis in the process of removal. The dissection was continued to include jay tissue adjacent to the common iliac vessels. The obturator nerve was identified and all adjacent jay tissue removed with blunt dissection, with the Thunderbeat or Gyrus bipolar Omni used for lymphostasis and hemostasis as needed. The fan retractors were adjusted in that a suprapubically placed fan retracted the broad ligament and ureter with ileum while the right lateral trocar was used for a fan to retract the cecum and ascending colon allowing any jay tissue adjacent to the vena cava, as well as aorto-caval nodes to be removed using identical technique. Manufacturing Area Manager vessels were addressed with the Thunderbeat or Gyrus bipolar Omni. At this time we placed the fan retractors for contralateral exposure. Subsequently, all lymph node tissue adjacent to the left external iliac artery and vein, hypogastric artery and vein, as well as obturator fossa were removed with sharp and blunt dissection, the Thunderbeat or Gyrus bipolar Omni for hemostasis and lymphostasis, with a technique identical to the right side. The dissection was continued to include jay tissue adjacent to the common iliac vessels. Subsequently, the fan retractors were adjusted and any jay tissue adjacent to the aorta were dissected using similar technique. After irrigating and assuring hemostasis the 12 millimeter trocars were removed and the fascia was closed with 0-vicryl using an endo-close devise. The gas was removed and the skin of all sites then closed with subcutaneous 3-0 Vicryl suture and interrupted 5-0 Plain Gut suture. The EBL was 150cc and the patient tolerated the procedure well and left the OR in good condition. Jalen Muniz M.D. JALEN MUNIZ MD Nov 12, 2016 15:22
[2016-11-12] MEDS ORDERED: SOD FERRIC GLUC COMPLX 125 MG in SOD CHLORIDE 0.9% 100 ML IVPB ONE (16:30)
[2016-11-12] MEDS ORDERED: INSULIN ASPART [NOVOLOG] 3 ML PEN SC SCH (17:25)
[2016-11-12] MEDS ORDERED: IBUPROFEN 600 MG TAB PO SCH (18:00)
--- NOTE | 2016-11-12 19:55 | PN ---
Date/Time of Note Date/Time of Note DATE: 11/12/16 TIME: 19:53 Assessment/Plan VTE Prophylaxis VTE Prophylaxis Intervention: SCD's Lines/Catheters IV [facility] Saline Lock Urinary Cath still in place: Yes Assessment/Plan Chief Complaint/Hosp Course Endometrial cancer Problems: Assessment/Plan A- doing well P- Probably d/c today. Subjective 24 Hr Interval Summary Free Text/Dictation S- Comfortable, tolerates diet and + flatus. awaiting void O- Resp- clear CVS-NSR Abd- soft NT Ext- NT no edema A- doing well P- Probably d/c today. Exam/Review of Systems Vital Signs Vitals Vital Signs Date Time Temp Pulse Resp B/P Pulse Ox O2 Delivery O2 Flow Rate FiO2 11/12/16 07:35 98.7 79 16 108/71 96 11/11/16 21:10 Nasal Cannula 2.0 Intake and Output 11/11/16 11/11/16 11/12/16 15:00 23:00 07:00 Intake Total 980 ml 729 ml 1300 ml Output Total 300 ml 50 ml 950 ml Balance 680 ml 679 ml 350 ml Results Result Diagram: 11/12/16 0436 11/12/16 0436 Results 24 hrs Laboratory Tests Test 11/11/16 20:12 11/12/16 02:00 11/12/16 04:36 11/12/16 08:02 Bedside Glucose 255 H 209 170 Alanine Aminotransferase (ALT/SGPT) 126 H Albumin 2.6 L Albumin/Globulin Ratio 1.08 Alkaline Phosphatase 68 Anion Gap 13 Aspartate Amino Transf (AST/SGOT) 126 H Basophils # 0.0 Basophils % 0.5 Blood Urea Nitrogen 25 H Calcium Level 8.3 L Carbon Dioxide Level 26 Chloride Level 95 L Creatinine 0.99 Direct Bilirubin 0.00 Eosinophils # 0.1 Eosinophils % 1.2 Globulin 2.40 Glucose Level 190 Hematocrit 27.9 L Hemoglobin 9.5 L Hemoglobin A1c 10.7 H INR International Normalized Ratio 1.05 Indirect Bilirubin 0.0 Lymphocytes # 2.6 Lymphocytes % 28.1 Magnesium Level 2.3 Mean Corpuscular Hemoglobin 29.1 Mean Corpuscular Hemoglobin Concent 34.1 Mean Corpuscular Volume 85.3 Mean Platelet Volume 10.1 Monocytes # 0.8 Monocytes % 8.4 Neutrophils # 5.8 Neutrophils % 61.8 Nucleated Red Blood Cells # 0.0 Nucleated Red Blood Cells % 0.0 Phosphorus Level 3.0 # Platelet Count 198 # Potassium Level 4.5 Prothrombin Time 13.7 Prothrombin Time Ratio 1.1 Red Blood Count 3.26 L Red Cell Distribution Width 13.3 Sodium Level 129 L Thyroid Stimulating Hormone (TSH) 0.460 L Total Bilirubin 0.0 L Total Protein 5.0 L White Blood Count 9.3 Test 11/12/16 12:19 11/12/16 17:48 Bedside Glucose 233 H 226 H Medications Medications Current Medications Acetaminophen/ Hydrocodone Bitart ([place] (5/325)) 1 tab Q6H PRN PO PAIN; Start 11/10/16 at 19:30 Morphine Sulfate (morphine) 2 mg Q4H PRN IV PAIN LEVEL 7-10; Start 11/10/16 at 19:30 Ondansetron HCl (Zofran Inj) 4 mg Q6H PRN IV NAUSEA AND/OR VOMITING; Start at 19:30 Miscellaneous Information 1 ea NOTE XX ; Start 11/10/16 at 23:30 Glucose (Glutose) 15 gm Q15M PRN PO DECREASED GLUCOSE; Start 11/10/16 at 23:30 Glucose (Glutose) 22.5 gm Q15M PRN PO DECREASED GLUCOSE; Start 11/10/16 at 23: 30 Dextrose (D50w Syringe) 25 ml Q15M PRN IV DECREASED GLUCOSE; Start 11/10/16 at 23:30 Dextrose (D50w Syringe) 50 ml Q15M PRN IV DECREASED GLUCOSE; Start 11/10/16 at 23:30 Glucagon (Glucagen) 1 mg Q15M PRN IM DECREASED GLUCOSE; Start 11/10/16 at 23:30 Glucose (Glutose) 15 gm Q15M PRN BUCCAL DECREASED GLUCOSE; Start 11/10/16 at 23 :30 Insulin Glargine (Lantus) 10 unit AM SC Last administered on 11/12/16t 08:35; Admin Dose 10 UNIT; Start 11/11/16 at 09:00 Diagnostic Test (Pha) (Accucheck) 1 ea 02 XX ; Start 11/12/16 at 02:00 Famotidine (Pepcid Iv) 20 mg DAILY IV Last administered on 11/12/16t 08:33; Admin Dose 20 MG; Start 11/11/16 at 14:00 Enoxaparin Sodium (Lovenox) 40 mg DAILY SC ; Start 11/12/16 at 09:00; Status UNV Insulin Glargine (Lantus) 18 unit QHS SC ; Start 11/12/16 at 21:00 Famotidine (Pepcid) 20 mg DAILY PO ; Start 11/13/16 at 09:00 Ibuprofen (Motrin) 600 mg Q6 PO Last administered on 11/12/16t 17:58; Admin Dose 600 MG; Start 11/12/16 at 18:00 Docusate Sodium (Colace) 200 mg HS PO ; Start 11/12/16 at 21:00 JALEN MUNIZ MD Nov 12, 2016 19:55
--- NOTE | 2016-11-12 20:07 | DS ---
DATE OF ADMISSION: 11/10/2016 DATE OF DISCHARGE: 11/12/2016 PRIMARY CARE PHYSICIAN: Unknown. ASSOCIATE TRAINER: Sonido Muniz MD DIAGNOSIS ON ADMISSION: Endometrial cancer. DIAGNOSES ON DISCHARGE: 1. Endometrial cancer, grade I. 2. Anemia. 3. Subclinical hypothyroidism. 4. Diabetes/metabolic syndrome. 5. Hypertension. 6. Mild abnormal LFTs Possible nonalcoholic steatohepatitis. HOSPITAL COURSE: A 61-year-old female admitted for elective surgery. The patient underwent abdomin al surgery, total abdominal hysterectomy with BSO under the care of Dr. Muniz along with lymph no de dissection. Please see operative report for complete details. Postoperative hospital course was uncomplicated, patient is tolerating diet, ambulating and she is stable and fit for discharge. She will see Dr. Muniz in followup. She will probably go home with a Das leg bag. Motrin and Tyl enol for pain, Colace to avoid constipation. Will need to follow up with primary and advance care planning. In terms of her diabetes, her A1c is 10, high risk of postoperative wound infection or other issues. She will need to follow up with primary and consider endocrine referral. Incidentally, TSH was found to be low. She has subclinical hypothyroidism. Anemia is stable. No evidence of bleeding, no requirements for any transfusion. The patient had blurry vision postoperatively. Probably dry eyes due to incomplete closure with tap ing. No evidence for TIA. DISCHARGE PLAN: Home. FOLLOWUP: 1. Follow up with primary in [address] Muniz 1 week. DIET: 1800 ADA. ACTIVITY: As tolerated. ALLERGIES: None. CONDITION: Good. BARRIERS TO DISCHARGE: None. PENDING TESTS: None. FUNCTIONAL STATUS: The patient awake, alert and agrees to plan of care. STATUS: Discussed with nurse. REASON FOR ADMISSION: Endometrial cancer, Das. LABORATORY DATA: Sodium 129, potassium 4.5, chloride 95, bicarbonate 26, BUN of 25, creatinine 0.9, glucose of 190. A1c 10.7, calcium of 8, magnesium of 2, phosphorus 3. Bilirubin 0, AST and ALT of 126 and 126, alkaline phosphatase of 68, protein of 5, albumin 2.6. TSH 0.46. INR 1. White cell count of 9, hemoglobin and hematocrit of 9.5 and 27, MCV 85, platelets of 198. DISCHARGE MEDICATIONS: New medications: Colace 200 at bedtime, Motrin 600 every 6 as needed, Pepci d 20 daily. Lipitor 40 daily, lisinopril 40 daily, aspirin 81 daily, glipizide 10 mg daily, Lantus 34 at bedtime , Janumet mg one tablet daily. Dictated By: RICHMOND GARCIA/NTS Conf#: [id number] DID#: [id number] CC: SONIDO MUNIZ MD;*EndCC*
[2016-11-12] MEDS ORDERED: INSULIN GLARGINE [LANtus] 3 ML PEN SC SCH (21:00)
[2016-11-12] MEDS ORDERED: DOCUSATE SODIUM 100 MG CAP PO SCH (21:00)
[2016-11-13] MEDS ORDERED: FAMOTIDINE 20 MG TAB PO SCH (09:00)
== END 2016-11-12 19:55 | disposition home or self-care (01) | DRG 741 ==
LOC: REC 12:36 → TEL 20:25 → MS1 11-11 13:37
PROVIDERS: ADMIT Internal Medicine
PROC: 0UT7FZZ Resection of Bilateral Fallopian Tubes, Via Natural or Artificial Opening With Percutaneous Endoscopic Assistance (ICD-10-PCS; 2016-11-10)
PROC: 0UT2FZZ Resection of Bilateral Ovaries, Via Natural or Artificial Opening With Percutaneous Endoscopic Assistance (ICD-10-PCS; 2016-11-10)
PROC: 07BC4ZZ Excision of Pelvis Lymphatic, Percutaneous Endoscopic Approach (ICD-10-PCS; 2016-11-10)
PROC: 0TS84ZZ Reposition Bilateral Ureters, Percutaneous Endoscopic Approach (ICD-10-PCS; 2016-11-10)
PROC: 07BD4ZX Excision of Aortic Lymphatic, Percutaneous Endoscopic Approach, Diagnostic (ICD-10-PCS; 2016-11-10)
PROC: 0UTC4ZZ Resection of Cervix, Percutaneous Endoscopic Approach (ICD-10-PCS; 2016-11-10)
PROC: 0UT9FZZ Resection of Uterus, Via Natural or Artificial Opening With Percutaneous Endoscopic Assistance (ICD-10-PCS; principal; 2016-11-10 14:30)
DX: C54.1 Malignant neoplasm of endometrium (principal); K75.81 Nonalcoholic steatohepatitis (NASH); N13.5 Crossing vessel and stricture of ureter without hydronephrosis; E11.9 Type 2 diabetes mellitus without complications; I10 Essential (primary) hypertension; D64.9 Anemia, unspecified; D25.1 Intramural leiomyoma of uterus; E78.5 Hyperlipidemia, unspecified; H53.8 Other visual disturbances; E02 Subclinical iodine-deficiency hypothyroidism
CPT/HCPCS: 80048; 80053; 82306; 82962; 83036; 83735; 84100; 84443; 85025; 85610; 86850; 86900; 86901; 86920; 88104; 88305; 88307; 88309; 88313; 93005; J0690; J1100; J1644; J1815; J1885; J2250; J2274; J2370; J2405; J2710; J2765; J2795; J2916; J3010; J3475; J3480; J7120

== ENCOUNTER 2017-11-17 12:27 | Emergency (ER) | END 2017-11-17 18:03 | disposition home or self-care (01) ==

== ENCOUNTER 2017-11-19 16:24 | Emergency (ER) | END 2017-11-19 23:08 | disposition home or self-care (01) ==

== ENCOUNTER 2018-09-02 15:26 | Emergency (ER) | END 2018-09-02 17:33 | disposition home or self-care (01) ==